=== PATIENT | male | born 1940 | race Caucasian/White ===

== ENCOUNTER 2016-08-19 21:34 | Emergency (ER) | payer OTHER ==
--- NOTE | 2016-08-19 23:35 | ED NURSING NOTES ---
Clinical Report - Nurses Located Within [facility] [address] [place] [address] 08/19/2016 21:35 Patient: AZRA ZHONG TRIAGE Triage time 21:52. Acuity: LEVEL 3. Chief Complaint: CONSTIPATION. --21:59 Andres Flanagan R.N. 21:52 08/19/16. BP: 142/66. HR: 86. RR: 16. O2 saturation: 95%. Temp: 98.5 F (oral). Pain level now: 07/20. --21:59 Andres Flanagan R.N. Weight: 102 kg stated. Height/Length: 72 inches Per Patient. BMI: 30.5. --21:53 Andres Flanagan R.N. Medications Calcium/vitamin D/magnesium, 2x a day. Cephalexin Oral 2000 mg, x1 (02/19/2013). Fish Oil Oral. Flomax Oral. Flonase Nasal, at bedtime. Garlic Oral. --21:56 Andres Flanagan R.N. Glucosamine-Chondroitin Oral. Hytrin. Iron+vitamin c. Melatonin Oral. Multivitamins Oral. Pantoprazole Sodium Oral 40 mg, daily. Protein liquid. Stool Softener Oral, as needed. Vitamin B-1 Oral (Tablet 250 mg) 1 tablet, every other day. Vitamin B-12 Oral (Tablet 500 mcg) 1 tablet, daily. --21:56 Andres Flanagan R.N. OxyCODONE HCl Oral. --21:56 Andres Flanagan R.N. Medication/allergy information source: the patient. --21:59 Andres Flanagan R.N. Allergies NKDA. --21:56 Andres Flanagan R.N. History Arrived by private vehicle. Historian: patient. Accompanied by friend. 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 Has been taking Oxycodone for pain management. Last BM was on Monday even while taking stool softener.). Onset. (5 days ago). He has had constipation (5 days). Last oral intake by patient was lunch. 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 SURGERY HX: Right and left knee surgery (replacement). SOCIAL HX: Smoker- current status unknown. Occasional alcohol use; consumes beer occasionally. --21:59 Andres Flanagan R.N. PROBLEMS: Diarrhea. Gastroenteritis. Bleeding ulcer. C diff. --21:57 Andres Flanagan R.N. Interventions ID band on patient. To room. --21:59 Andres Flanagan R.N. PHYSICAL ASSESSMENT Ambulatory to room. GENERAL / NEURO / PSYCH: Alert. Oriented X 4. Appears in no acute distress. HEENT: Mucous membranes are pink. RESPIRATORY: Respirations not labored. Breath sounds within normal limits. CVS: Capillary refill less than 2 seconds. GI / : Abdomen soft and nontender. Bowel sounds within normal limits. SKIN: Skin is warm and dry. --22:00 Andres Flanagan R.N. NURSING PROGRESS NOTES Head of bed elevated. Reassurance given. Call light placed in reach. Side rails up x 1. Bed placed in lowest position. Brakes of bed on. Patient ready for evaluation- ED physician notified. --22:01 Andres Flanagan R.N. 22:16 08/19/2016 Fleet Enema (Enema) NE Supp/(NE) 1 application given. Allergies verified and confirmed 5 rights. --22:16 Andres Flanagan R.N. Reassessment after (Fleet enema). He is calm and resting quietly. Overall patient status is the same- he states feels the same. ( no success with fleet enema; will have milk of molasses enema). --22:34 Andres Flanagan R.N. Reassessment after (Milk of molasses enema). Overall patient status is improved- he states feels better. ( Patient was able to have a BM of formed stool; still sitting on the commode chair to have another BM. Dr. Dow updated and made aware.). GI / : Abdomen soft. SKIN: Skin is warm and dry. --23:26 Andres Flanagan R.N. DISPOSITION / DISCHARGE Condition at departure: improved. ( large amount of formed stool after enema). No learning barriers present. Discharge instructions provided and reviewed with the patient. Reviewed medication(s) side effects, precautions, dosing and course information. Prescription(s) given to the patient. Patient verbalized understanding. Written instructions provided in Faroese. The patient was discharged home and accompanied by guest relations manager. He left the Emergency Department in a wheelchair and via private vehicle. [employer] Mixer driving. --00:05 Anders Flanagan R.N. 00:03 08/20/16. BP: 137/72. HR: 75. RR: 16. O2 saturation: 100%. Temp: 98 F (oral). Pain level now: . --00:05 Andres Flanagan R.N. Departure time: 00:05. --00:05 Andres Flanagan R.N. Locked/Released at 08/20/2016 0:05 by Andres Flanagan R.N.
--- NOTE | 2016-08-19 23:35 | ED NURSING NOTES ---
Clinical Report - Nurses Merged With [facility] [address] [place] [address] 08/19/2016 21:35 Patient: AZRA ZHONG TRIAGE Triage time 21:52. Acuity: LEVEL 3. Chief Complaint: CONSTIPATION. --21:59 Andres Flanagan R.N. 21:52 08/19/16. BP: 142/66. HR: 86. RR: 16. O2 saturation: 95%. Temp: 98.5 F (oral). Pain level now: 07/20. --21:59 Andres Flanagan R.N. Weight: 102 kg stated. Height/Length: 72 inches Per Patient. BMI: 30.5. --21:53 Andres Flanagan R.N. Medications Calcium/vitamin D/magnesium, 2x a day. Cephalexin Oral 2000 mg, x1 (02/19/2013). Fish Oil Oral. Flomax Oral. Flonase Nasal, at bedtime. Garlic Oral. --21:56 Andres Flanagan R.N. Glucosamine-Chondroitin Oral. Hytrin. Iron+vitamin c. Melatonin Oral. Multivitamins Oral. Pantoprazole Sodium Oral 40 mg, daily. Protein liquid. Stool Softener Oral, as needed. Vitamin B-1 Oral (Tablet 250 mg) 1 tablet, every other day. Vitamin B-12 Oral (Tablet 500 mcg) 1 tablet, daily. --21:56 Andres Flanagan R.N. OxyCODONE HCl Oral. --21:56 Andres Flanagan R.N. Medication/allergy information source: the patient. --21:59 Andres Flanagan R.N. Allergies NKDA. --21:56 Andres Flanagan R.N. History Arrived by private vehicle. Historian: patient. Accompanied by friend. 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 Has been taking Oxycodone for pain management. Last BM was on Monday even while taking stool softener.). Onset. (5 days ago). He has had constipation (5 days). Last oral intake by patient was lunch. 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 SURGERY HX: Right and left knee surgery (replacement). SOCIAL HX: Smoker- current status unknown. Occasional alcohol use; consumes beer occasionally. --21:59 Andres Flanagan R.N. PROBLEMS: Diarrhea. Gastroenteritis. Bleeding ulcer. C diff. --21:57 Andres Flanagan R.N. Interventions ID band on patient. To room. --21:59 Andres Flanagan R.N. PHYSICAL ASSESSMENT Ambulatory to room. GENERAL / NEURO / PSYCH: Alert. Oriented X 4. Appears in no acute distress. HEENT: Mucous membranes are pink. RESPIRATORY: Respirations not labored. Breath sounds within normal limits. CVS: Capillary refill less than 2 seconds. GI / : Abdomen soft and nontender. Bowel sounds within normal limits. SKIN: Skin is warm and dry. --22:00 Andres Flanagan R.N. NURSING PROGRESS NOTES Head of bed elevated. Reassurance given. Call light placed in reach. Side rails up x 1. Bed placed in lowest position. Brakes of bed on. Patient ready for evaluation- ED physician notified. --22:01 Andres Flanagan R.N. 22:16 08/19/2016 Fleet Enema (Enema) [place] Supp/([place]) 1 application given. Allergies verified and confirmed 5 rights. --22:16 Andres Flanagan R.N. Reassessment after (Fleet enema). He is calm and resting quietly. Overall patient status is the same- he states feels the same. ( no success with fleet enema; will have milk of molasses enema). --22:34 Andres Flanagan R.N. Reassessment after (Milk of molasses enema). Overall patient status is improved- he states feels better. ( Patient was able to have a BM of formed stool; still sitting on the commode chair to have another BM. Dr. Dow updated and made aware.). GI / : Abdomen soft. SKIN: Skin is warm and dry. --23:26 Andres Flanagan R.N. DISPOSITION / DISCHARGE Condition at departure: improved. ( large amount of formed stool after enema). No learning barriers present. Discharge instructions provided and reviewed with the patient. Reviewed medication(s) side effects, precautions, dosing and course information. Prescription(s) given to the patient. Patient verbalized understanding. Written instructions provided in Georgian. The patient was discharged home and accompanied by cane cutter. He left the Emergency Department in a wheelchair and via private vehicle. Md [facility] driving. --00:05 Andres Flanagan R.N. 00:03 08/20/16. BP: 137/72. HR: 75. RR: 16. O2 saturation: 100%. Temp: 98 F (oral). Pain level now: . --00:05 Andres Flanagan R.N. Departure time: 00:05. --00:05 Andres Flanagan R.N. Locked/Released at 08/20/2016 0:05 by Andres Flanagan R.N.
--- NOTE | 2016-08-19 23:35 | ED CLINICAL REPORT ---
Clinical Report - Physicians/Mid Levels [facility] [address] [place] [address] 08/19/2016 21:35 Patient: AZRA ZHONG Time Seen: 2150. Arrived- By private vehicle. Historian- patient. HISTORY OF PRESENT ILLNESS Chief Complaint: constipation. This started no BM for the past 5 days, has been severe and is still present and worsening. It is not gone now. It has been constant. Not gradual onset. The patient has had constipation. (had left knee replaced. reports the pain medication probably started it.). No recent travel. No known contact with a sick individual. Similar symptoms previously: None. Recent medical care: The patient was seen recently by a health care provider (knee replacement surgery). REVIEW OF SYSTEMS No fever or skin rash. All systems otherwise negative, except as recorded above. PAST HISTORY See nurses notes. Medications: OxyCODONE HCl Oral. Glucosamine-Chondroitin Oral. Hytrin. Iron+vitamin c. Melatonin Oral. Multivitamins Oral. Pantoprazole Sodium Oral 40 mg, daily. Protein liquid. Stool Softener Oral, as needed. Vitamin B-1 Oral (Tablet 250 mg) 1 tablet, every other day. Vitamin B-12 Oral (Tablet 500 mcg) 1 tablet, daily. Calcium/vitamin D/magnesium, 2x a day. Cephalexin Oral 2000 mg, x1 (02/19/2013). Fish Oil Oral. Flomax Oral. Flonase Nasal, at bedtime. Garlic Oral. Allergies: NKDA. SOCIAL HISTORY Never smoker. No alcohol use or drug use. No recent travel. Is a local resident. ADDITIONAL NOTES The nursing notes have been reviewed. PHYSICAL EXAM Vital Signs: 08/19/2016 21:52 BP: 142/66. HR: 86. RR: 16. O2 saturation: 95%. Temp: 98.5 F. Pain level now: 5/10. Blood pressure normal. Oxygen saturation normal. Appearance: Alert. Oriented X3. No acute distress. (pleasant, cooperative, non-toxic.). Eyes: Pupils equal, round and reactive to light. Eyes normal inspection. ENT: Ears normal. Nose normal. Pharynx normal. CVS: Normal heart rate and rhythm. Heart sounds normal. Pulses normal. Respiratory: No respiratory distress. Breath sounds normal. Abdomen: Soft and nontender. No organomegaly. No mass. (hypoactive bowel sounds. negative España's. No tenderness at McBurney's). Skin: Skin warm and dry. Normal skin color. No rash. Normal skin turgor. Extremities: Extremities exhibit normal ROM. No lower extremity edema. (Wound to the left anterior knee is clean dry and intact. No signs of infection. No crepitus.). PROGRESS AND PROCEDURES Course of Care: the patient is a pleasant 76-year-old male with recent left-sided knee surgery presenting for evaluation of constipation. Patient has a nontender examination of his abdomen. Do not feel this is a surgical condition. Patient is able to pass gas. Patient reports hard stool with his own personal digital examination. At this time, will have patient treated with enema while here in the emergency department. Patient is agreeable to the treatment plan. Patient has significantly amount of bowel movementsaafter the enema was given. Patient reported significant improvement with her symptoms. Discussed with the patient is workup here in the emergency department including his diagnosis, home care, follow-up, and return precautions. All questions have been answered. The patient expressed understanding of these instructions and was agreeable to them. Repeat abdominal exam is benign. No feel patient has a surgical abdomen. Disposition: Discharged. Condition: good. INSTRUCTIONS Warnings: GENERAL WARNINGS: Return or contact your physician immediately if your condition worsens or changes unexpectedly, if not improving as expected, or if other problems arise. Specifically return if pain, vomiting, bleeding, breathing difficulty or fever. Your Current Medications: CONTINUE TAKING THE FOLLOWING MEDICATIONS: Calcium/vitamin D/magnesium* : 2x a day. Cephalexin Oral : 2000 mg x1, 02/19/2013. Fish Oil Oral. Flomax Oral. Flonase Nasal : at bedtime. Garlic Oral. Glucosamine-Chondroitin Oral. Hytrin*. Iron+vitamin c*. Melatonin Oral. Multivitamins Oral. OxyCODONE HCl Oral. Pantoprazole Sodium Oral : 40 mg daily. Protein liquid*. Stool Softener Oral : prn. Vitamin B-1 Oral : Tablet 250 mg, 1 tablet every other day. Vitamin B-12 Oral : Tablet 500 mcg, 1 tablet daily. Prescription Medications: Miralax: take 1 measuring cupful supplied mixed in 8 ounces juice every day as needed for constipation. Dispense twenty-six (26) ounce bottle. No refills. Substitution is permissible. OTC Medications: Senokot (available over the counter): take according to label instructions. Follow-up: Return to the emergency department as needed. Follow up with your doctor in three days. Reason for referral: recheck today's concerns. Summary of care provided to patient via paper. Screening today revealed the patient's blood pressure to be in the normal range. The patient should follow up with a primary care provider for blood pressure management. Understanding of the discharge instructions verbalized by patient. (Electronically signed by Daniel Dow Dr. 08/21/2016 5:13)
--- NOTE | 2016-08-19 23:36 | ED ORDER SUMMARY ---
..... Patient: AZRA ZHONG OrderSheet [facility] VisitID: [id number] [address] [place] [address] 76y, M Registration Date/Time: 08/19/2016 ORDER SHEET Weight: 102.0 kg (stated) Allergies: NKDA GENERAL ORDERS: MEDICATION ORDERS: - (enema once now. follow package instructions.) (21:58 08/19/2016 Sheri Lipscomb) (Ack 22:01 Margarita Gould) (22:16 Margarita Gould) IV FLUIDS: ORDER SHEET NOTES: [Electronically signed by Andres Flanagan R.N. (00:05 08/20/2016)] [Electronically signed by Daniel Dow Dr. (05:13 08/21/2016)] [Electronically locked/signed by Andres Flanagan R.N. (00:05 08/20/2016)]
--- NOTE | 2016-08-19 23:36 | ED ORDER SUMMARY ---
..... Patient: AZRA ZHONG OrderSheet [facility] VisitID: [id number] [address] [place] [address] 76y, M Registration Date/Time: 08/19/2016 ORDER SHEET Weight: 102.0 kg (stated) Allergies: NKDA GENERAL ORDERS: MEDICATION ORDERS: - (enema once now. follow package instructions.) (21:58 08/19/2016 Sheri Lipscomb) (Ack 22:01 Margarita Gould) (22:16 Margarita Gould) IV FLUIDS: ORDER SHEET NOTES: [Electronically signed by Andres Flanagan R.N. (00:05 08/20/2016)] [Electronically signed by Daniel Dow Dr. (05:13 08/21/2016)] [Electronically locked/signed by Andres Flanagan R.N. (00:05 08/20/2016)]
--- NOTE | 2016-08-21 05:13 | ED DISCHARGE INSTRUCTIONS ---
Patient: AZRA ZHONG General Instructions [facility] VisitID: [id number] [place] [address] 76y, M Registration Date/Time: 08/19/2016 INSTRUCTIONS Warnings: GENERAL WARNINGS: Return or contact your physician immediately if your condition worsens or changes unexpectedly, if not improving as expected, or if other problems arise. Specifically return if pain, vomiting, bleeding, breathing difficulty or fever. Your Current Medications: CONTINUE TAKING THE FOLLOWING MEDICATIONS: Calcium/vitamin D/magnesium* : 2x a day. Cephalexin Oral : 2000 mg x1, 02/19/2013. Fish Oil Oral. Flomax Oral. Flonase Nasal : at bedtime. Garlic Oral. Glucosamine-Chondroitin Oral. Hytrin*. Iron+vitamin c*. Melatonin Oral. Multivitamins Oral. OxyCODONE HCl Oral. Pantoprazole Sodium Oral : 40 mg daily. Protein liquid*. Stool Softener Oral : prn. Vitamin B-1 Oral : Tablet 250 mg, 1 tablet every other day. Vitamin B-12 Oral : Tablet 500 mcg, 1 tablet daily. Prescription Medications: Miralax: take 1 measuring cupful supplied mixed in 8 ounces juice every day as needed for constipation. Dispense twenty-six (26) ounce bottle. No refills. Substitution is permissible. OTC Medications: Senokot (available over the counter): take according to label instructions. Follow-up: Return to the emergency department as needed. Follow up with your doctor in three days. Reason for referral: recheck today's concerns. Summary of care provided to patient via paper. Screening today revealed the patient's blood pressure to be in the normal range. The patient should follow up with a primary care provider for blood pressure management. Understanding of the discharge instructions verbalized by patient. (Electronically signed by Daniel Dow Dr. 08/21/2016 5:13)
--- NOTE | 2016-08-21 05:13 | ED MAR SUMMARY ---
..... Medication Administration Record [facility] [address] [place] [address] Patient: AZRA ZHONG Visit ID: [id number] 76y, M Weight: 102.0 kg Height/Length: 72 in BMI: 30.5 ALLERGIES: NKDA Given 22:16 08/19/2016 Andres Flanagan R.N. Medication Administered: FLEET ENEMA [IN] (ENEMA), Dose: 1 application Supp/(IN) [place]. Medication Ordered: - (enema once now. follow package instructions.).
--- NOTE | 2016-08-21 05:13 | ED MAR SUMMARY ---
..... Medication Administration Record [facility] [address] [place] [address] Patient: AZRA ZHONG Visit ID: [id number] 76y, M Weight: 102.0 kg Height/Length: 72 in BMI: 30.5 ALLERGIES: NKDA Given 22:16 08/19/2016 Andres Flanagan R.N. Medication Administered: FLEET ENEMA [[place]] (ENEMA), Dose: 1 application Supp/(KY) [place]. Medication Ordered: - (enema once now. follow package instructions.).
--- NOTE | 2016-08-21 05:13 | ED MED RECONCILIATION SUMMARY ---
Patient: AZRA ZHONG Medication Reconciliation Report [facility] VisitID: [id number] [address] [place] [address] 76y, M Registration Date/Time: 08/19/2016 Weight: 102.0 kg Height/Length: 72 in. BMI: 30.5 ALLERGIES: NKDA The patient's Home Medications are listed below: CONTINUE TAKING THE FOLLOWING MEDICATIONS: Calcium/vitamin D/magnesium, 2x a day Cephalexin Oral 2000 mg, x1, 02/19/2013 Fish Oil Oral Flomax Oral Flonase Nasal, at bedtime Garlic Oral Glucosamine-Chondroitin Oral Hytrin Iron+vitamin c Melatonin Oral Multivitamins Oral OxyCODONE HCl Oral Pantoprazole Sodium Oral 40 mg, daily Protein liquid Stool Softener Oral Vitamin B-1 Oral (250 mg) 1 tablet, every other day Vitamin B-12 Oral (500 mcg) 1 tablet, daily The source(s) of the original Home Medication information: patient The following Medications were given to the patient in the Emergency Department: Fleet Enema [MD] MD 1 application, administered: 08/19/2016 10:16:00 PM The following Medications were prescribed to the patient: Senokot (available over the counter): take according to label instructions. -- Daniel Dow Dr. Miralax: take 1 measuring cupful supplied mixed in 8 ounces juice every day as needed for constipation. Dispense twenty-six (26) ounce bottle. No refills. Substitution is permissible. -- Daniel Dow Dr.
--- NOTE | 2016-08-21 05:13 | ED MED RECONCILIATION SUMMARY ---
Patient: AZRA ZHONG Medication Reconciliation Report [facility] VisitID: [id number] [address] [place] [address] 76y, M Registration Date/Time: 08/19/2016 Weight: 102.0 kg Height/Length: 72 in. BMI: 30.5 ALLERGIES: NKDA The patient's Home Medications are listed below: CONTINUE TAKING THE FOLLOWING MEDICATIONS: Calcium/vitamin D/magnesium, 2x a day Cephalexin Oral 2000 mg, x1, 02/19/2013 Fish Oil Oral Flomax Oral Flonase Nasal, at bedtime Garlic Oral Glucosamine-Chondroitin Oral Hytrin Iron+vitamin c Melatonin Oral Multivitamins Oral OxyCODONE HCl Oral Pantoprazole Sodium Oral 40 mg, daily Protein liquid Stool Softener Oral Vitamin B-1 Oral (250 mg) 1 tablet, every other day Vitamin B-12 Oral (500 mcg) 1 tablet, daily The source(s) of the original Home Medication information: patient The following Medications were given to the patient in the Emergency Department: Fleet Enema [AR] AR 1 application, administered: 08/19/2016 10:16:00 PM The following Medications were prescribed to the patient: Senokot (available over the counter): take according to label instructions. -- Daniel Dow Dr. Miralax: take 1 measuring cupful supplied mixed in 8 ounces juice every day as needed for constipation. Dispense twenty-six (26) ounce bottle. No refills. Substitution is permissible. -- Daniel Dow Dr.
--- NOTE | 2016-08-21 05:13 | ED DISCHARGE INSTRUCTIONS ---
Patient: AZRA ZHONG General Instructions [facility] VisitID: [id number] [place] [address] 76y, M Registration Date/Time: 08/19/2016 INSTRUCTIONS Warnings: GENERAL WARNINGS: Return or contact your physician immediately if your condition worsens or changes unexpectedly, if not improving as expected, or if other problems arise. Specifically return if pain, vomiting, bleeding, breathing difficulty or fever. Your Current Medications: CONTINUE TAKING THE FOLLOWING MEDICATIONS: Calcium/vitamin D/magnesium* : 2x a day. Cephalexin Oral : 2000 mg x1, 02/19/2013. Fish Oil Oral. Flomax Oral. Flonase Nasal : at bedtime. Garlic Oral. Glucosamine-Chondroitin Oral. Hytrin*. Iron+vitamin c*. Melatonin Oral. Multivitamins Oral. OxyCODONE HCl Oral. Pantoprazole Sodium Oral : 40 mg daily. Protein liquid*. Stool Softener Oral : prn. Vitamin B-1 Oral : Tablet 250 mg, 1 tablet every other day. Vitamin B-12 Oral : Tablet 500 mcg, 1 tablet daily. Prescription Medications: Miralax: take 1 measuring cupful supplied mixed in 8 ounces juice every day as needed for constipation. Dispense twenty-six (26) ounce bottle. No refills. Substitution is permissible. OTC Medications: Senokot (available over the counter): take according to label instructions. Follow-up: Return to the emergency department as needed. Follow up with your doctor in three days. Reason for referral: recheck today's concerns. Summary of care provided to patient via paper. Screening today revealed the patient's blood pressure to be in the normal range. The patient should follow up with a primary care provider for blood pressure management. Understanding of the discharge instructions verbalized by patient. (Electronically signed by Daniel Dow Dr. 08/21/2016 5:13)
== END 2016-08-19 23:55 | disposition home or self-care (01) ==
LOC: ED SRH 21:34
DX: K59.00 Constipation, unspecified (principal); Z79.891 Long term (current) use of opiate analgesic; Z79.899 Other long term (current) drug therapy; Z79.2 Long term (current) use of antibiotics